=== PATIENT | male | born 1960 | race African-American/Black ===

== ENCOUNTER 2018-12-24 12:14 | Inpatient (IN) | payer MEDICAID ==
[~2018-12-24] VITALS: Ht 167.6 cm; Wt 54.2 kg
[~2018-12-24 12:14] MED LIST: AMOX125S12 PO; FLUD0.1T PO; FOLI-43 PO; GABA-529 PO; HYDR-4001 PO; METF-414 PO; METH500T PO; MULT1TAB63 PO; PANT40TA4 PO; PIPE3.3736 IV; THIA100T75 PO
[2018-12-24 13:01] LABS: BASOPHILS % 0.3 % (0.0-2.0); EOSINOPHILS % 0.1 % (0.0-5.0); HEMATOCRIT. 34.4 % (42.0-52.0); HEMOGLOBIN. 11.5 g/dL (14.0-18.0); LYMPHOCYTES % 10.3 % (20.0-50.0); MEAN CORPUSCULAR HEMOGLOBIN 31.9 pg (28.0-32.0); MEAN CORPUSCULAR VOLUME 95.3 fL (80.0-94.0); MEAN PLATELET VOLUME 8.2 fl (7.4-10.4); MONOCYTES % 7.9 % (2.0-8.0); NEUTROPHILS % 81.4 % (40.0-76.0); PLATELET 313 x1000/uL (130-400); RED BLOOD CELL COUNT 3.61 mill/uL (4.7-6.1); RED CELL DISTRIBUTION WIDTH 14.9 % (11.6-14.6)
[2018-12-24 13:08] LABS: INR 1.1; PROTHROMBIN TIME 11.1 sec (9.6-11.0)
[2018-12-24 13:16] LABS: CHLORIDE 108 mEq/L (98-107)
[2018-12-24 13:20] LABS: ETHANOL BLOOD < 10 mg/dL
[2018-12-24 13:22] LABS: LDL CHOLESTEROL 56 mg/dL (5-100)
[2018-12-24] MEDS ORDERED: IOHEXOL-350 100 ML BOTTLE ONE (14:15)
[2018-12-24] MEDS ORDERED: DEXT 5%/LACTATED RINGERS 1,000 ML IV ONE (15:15)
[2018-12-24] MEDS ORDERED: DOXYCYCLINE HYCLATE 100 MG/VIAL IV ONE (16:30)
[2018-12-24] MEDS ORDERED: CEFTRIAXONE 1 G PREMIX 50 ML IV ONE (16:30)
[2018-12-24] MEDS ORDERED: DOXYCYCLINE 100MG in DEXTROSE 5% WATER 100ML IV SCH (17:50)
[2018-12-24] MEDS ORDERED: HALOPERIDOL LACTATE 5MG/ML VIAL IM ONE (18:00)
[2018-12-24 18:28] LABS: CLARITY URINE CLOUDY (CLEAR); COLOR URINE YELLOW (YELLOW); KETONES URINE NEGATIVE (NEGATIVE); LEUKOCYTE ESTERASE URINE NEGATIVE (NEGATIVE); NITRITE URINE NEGATIVE (NEGATIVE); OCCULT BLOOD URINE NEGATIVE (NEGATIVE); PROTEIN URINE 1+ (NEGATIVE); SPECIFIC GRAVITY URINE 1.037 (1.005-1.030); UROBILINOGEN URINE 0.2 E.U./dL (0.2-1.0)
[2018-12-24 18:52] LABS: *AMPHETAMINES SCREEN URINE NEGATIVE (NEGATIVE); *BARBITURATES SCREEN URINE NEGATIVE (NEGATIVE); *BENZODIAZEPINES SCREEN URINE NEGATIVE (NEGATIVE); *COCAINE SCREEN URINE NEGATIVE (NEGATIVE); METHADONE URINE SCREEN NEGATIVE (NEGATIVE); OPIATES URINE SCREEN NEGATIVE (NEGATIVE)
[2018-12-24 18:54] LABS: CANNABINOID URINE SCREEN NEGATIVE (NEGATIVE); PHENCYCLIDINE URINE SCREEN NEGATIVE (NEGATIVE)
[2018-12-24] MEDS ORDERED: ONDANSETRON HCL 4MG/2ML INJ IM PRN (19:45)
[2018-12-24] MEDS ORDERED: LORAZEPAM 2MG/ML CPJ IM PRN (19:45)
[2018-12-24 20:00] VITALS: BP 97/65
[2018-12-24] MEDS ORDERED: DEXTROSE 50% WATER 50ML SYRINGE IV PRN (20:00)
[2018-12-24] MEDS: BLOOD SUGAR DIAGNOSTIC STRIP TEST SCH (21:00)
[2018-12-24] MEDS: DEXT 5%/0.45% NACL 1000ML 1,000 ML IV SCH (21:17)
[2018-12-24 22:00] VITALS: BP 95/65
[2018-12-24] MEDS ORDERED: DOXYCYCLINE 100 MG in DEXT 5% WATER 100 ML IV SCH (22:00)
[2018-12-24] MEDS: INSULIN LISPRO 100 UNITS/ML SUBCUT SCH (22:08)
[2018-12-24 22:44] VITALS: BP 112/67
[2018-12-24] MEDS ORDERED: CEFTRIAXONE 1 G PREMIX 50 ML IV SCH (23:00)
[2018-12-25] VITALS (13 sets, daily range): BP systolic 76–128; BP diastolic 47–78
[2018-12-25] MEDS: BLOOD SUGAR DIAGNOSTIC STRIP TEST SCH ×4 (07:17→21:00)
[2018-12-25 07:33] LABS: CHLORIDE 110 mEq/L (98-107)
[2018-12-25 07:45] LABS: HDL CHOLESTEROL 69 mg/dL (40-59)
[2018-12-25 07:46] LABS: LDL CHOLESTEROL 39 mg/dL (5-100)
[2018-12-25] MEDS: INSULIN LISPRO 100 UNITS/ML SUBCUT SCH ×4 (07:51→21:00)
[2018-12-25] MEDS ORDERED: ASPIRIN 81MG TABLET PO SCH (09:00)
[2018-12-25] MEDS: DEXT 5%/0.45% NACL 1000ML 1,000 ML IV SCH ×2 (10:18→23:12)
[2018-12-25 10:28] LABS: HEMOGLOBIN. 9.3 g/dL (14.0-18.0); MEAN CORPUSCULAR HEMOGLOBIN 31.4 pg (28.0-32.0); MEAN CORPUSCULAR VOLUME 95.1 fL (80.0-94.0); MEAN PLATELET VOLUME 8.8 fl (7.4-10.4); PLATELET 255 x1000/uL (130-400); RED BLOOD CELL COUNT 2.95 mill/uL (4.7-6.1); RED CELL DISTRIBUTION WIDTH 15.1 % (11.6-14.6)
[2018-12-25] MEDS: THIAMINE HCL 100MG TABLET PO SCH (12:30)
[2018-12-25] MEDS: FOLIC ACID 1MG TABLET PO SCH (12:30)
[2018-12-25] MEDS: NICOTINE 14MG PATCH TD SCH (13:43)
[2018-12-25] MEDS ORDERED: CHLORDIAZEPOXIDE 25MG CAPSULE PO PRN (14:00)
[2018-12-25] MEDS: ACETAMINOPHEN 325MG TABLET PO PRN (16:59)
[2018-12-25 19:39] LABS: T4 FREE 1.35 ng/dL (0.76-1.46)
[2018-12-25 19:52] LABS: FOLIC ACID (FOLATE) SERUM 14.8 ng/mL (>5.38)
[2018-12-25 20:52] LABS: PLATELET ESTIMATE NORMAL
[2018-12-25] MEDS: LORAZEPAM 2MG/ML CPJ IV PRN (21:46)
[2018-12-26] VITALS: BP 99/53
[2018-12-26] MEDS ORDERED: IPRATROPIUM/ALBUTEROL 0.5-3(2.5)MG/3ML NEB HHN PRN
[2018-12-26] MEDS: IPRATROPIUM/ALBUTEROL 0.5-3(2.5)MG/3ML NEB HHN SCH ×4 (00:11→20:00)
[2018-12-26] MEDS ORDERED: LEVOFLOXACIN 500MG PREMIX 100 ML IV SCH ×2 (01:00→08:00)
[2018-12-26 02:00] VITALS: BP 118/69
[2018-12-26 04:00] VITALS: BP 112/73
[2018-12-26] MEDS: LORAZEPAM 2MG/ML CPJ IV PRN (05:35)
[2018-12-26 06:00] VITALS: BP 95/53
[2018-12-26] MEDS: BLOOD SUGAR DIAGNOSTIC STRIP TEST SCH ×4 (07:30→21:40)
[2018-12-26] MEDS: FOLIC ACID 1MG TABLET PO SCH (08:38)
[2018-12-26] MEDS: THIAMINE HCL 100MG TABLET PO SCH (08:39)
[2018-12-26] MEDS: NICOTINE 14MG PATCH TD SCH (08:39)
[2018-12-26] MEDS: INSULIN LISPRO 100 UNITS/ML SUBCUT SCH ×4 (08:41→21:00)
[2018-12-26] MEDS: DEXT 5%/0.45% NACL 1000ML 1,000 ML IV SCH (11:29)
[2018-12-26] MEDS ORDERED: VANCOMYCIN 1500MG in DEXTROSE 5% WATER 250ML IV NR (13:00)
[2018-12-26 14:56] LABS: BASOPHILS % 1.1 % (0.0-2.0); EOSINOPHILS % 0.9 % (0.0-5.0); HEMATOCRIT. 26.8 % (42.0-52.0); HEMOGLOBIN. 8.9 g/dL (14.0-18.0); LYMPHOCYTES % 7.3 % (20.0-50.0); MEAN CORPUSCULAR HEMOGLOBIN 31.3 pg (28.0-32.0); MEAN CORPUSCULAR VOLUME 93.7 fL (80.0-94.0); MEAN PLATELET VOLUME 9.5 fl (7.4-10.4); MONOCYTES % 3.4 % (2.0-8.0); NEUTROPHILS % 87.3 % (40.0-76.0); PLATELET 240 x1000/uL (130-400); RED BLOOD CELL COUNT 2.86 mill/uL (4.7-6.1); RED CELL DISTRIBUTION WIDTH 15.1 % (11.6-14.6)
[2018-12-26] MEDS: CEFEPIME 2,000 MG in DEXT 5% WATER 100 ML IV SCH (14:59)
[2018-12-26] MEDS: METRONIDAZOLE 500 MG PREMIX 100 ML IV SCH ×2 (14:59→21:40)
[2018-12-26 20:00] VITALS: BP 128/74
[2018-12-26] MEDS ORDERED: VANCOMYCIN 1 G PREMIX 200 ML IV SCH (21:00)
[2018-12-26 22:00] VITALS: BP 134/78
[2018-12-27] VITALS (12 sets, daily range): BP systolic 106–133; BP diastolic 69–86
[2018-12-27] MEDS: CEFEPIME 2,000 MG in DEXT 5% WATER 100 ML IV SCH ×3 (00:11→23:44)
[2018-12-27] MEDS: ACETAMINOPHEN 325MG TABLET PO PRN (00:18)
[2018-12-27] MEDS: IPRATROPIUM/ALBUTEROL 0.5-3(2.5)MG/3ML NEB HHN SCH ×5 (01:14→16:05)
[2018-12-27] MEDS: DEXT 5%/0.45% NACL 1000ML 1,000 ML IV SCH ×2 (02:39→15:14)
[2018-12-27] MEDS: VANCOMYCIN 1 G PREMIX 200 ML IV SCH ×2 (02:39→15:14)
[2018-12-27] MEDS: LORAZEPAM 2MG/ML CPJ IV PRN (04:20)
[2018-12-27] MEDS: METRONIDAZOLE 500 MG PREMIX 100 ML IV SCH ×3 (06:23→21:03)
[2018-12-27] MEDS: BLOOD SUGAR DIAGNOSTIC STRIP TEST SCH ×4 (07:30→20:17)
[2018-12-27] MEDS: NICOTINE 14MG PATCH TD SCH (08:41)
[2018-12-27] MEDS: FOLIC ACID 1MG TABLET PO SCH (08:41)
[2018-12-27] MEDS: THIAMINE HCL 100MG TABLET PO SCH (08:41)
[2018-12-27] MEDS: INSULIN LISPRO 100 UNITS/ML SUBCUT SCH ×4 (08:47→20:20)
[2018-12-27] MEDS ORDERED: IPRATROPIUM BROMIDE (0.02%) 0.5MG/2.5ML NEB HHN SCH (17:15)
[2018-12-27] MEDS: IPRATROPIUM BROMIDE (0.02%) 0.5MG/2.5ML NEB HHN SCH (20:34)
[2018-12-27] MEDS: POLYETHYLENE GLYCOL 3350 (17GM) 1 DOSE PACK PO SCH (21:02)
[2018-12-27] MEDS: LACTULOSE 20G/30ML UDC PO SCH (21:02)
[2018-12-28] VITALS (7 sets, daily range): BP systolic 114–155; BP diastolic 50–91
[2018-12-28] MEDS: IPRATROPIUM BROMIDE (0.02%) 0.5MG/2.5ML NEB HHN SCH ×6 (00:40→21:29)
[2018-12-28] MEDS: VANCOMYCIN 1 G PREMIX 200 ML IV SCH (01:55)
[2018-12-28] MEDS: DEXT 5%/0.45% NACL 1000ML 1,000 ML IV SCH ×2 (03:39→18:21)
[2018-12-28] MEDS: METRONIDAZOLE 500 MG PREMIX 100 ML IV SCH ×3 (05:58→22:35)
[2018-12-28] MEDS: BLOOD SUGAR DIAGNOSTIC STRIP TEST SCH ×4 (07:30→20:34)
[2018-12-28] MEDS: DOCUSATE SODIUM 100MG CAPSULE PO SCH ×2 (09:00→16:26)
[2018-12-28] MEDS: LACTULOSE 20G/30ML UDC PO SCH ×3 (09:00→13:00)
[2018-12-28] MEDS: NICOTINE 14MG PATCH TD SCH (09:47)
[2018-12-28] MEDS: THIAMINE HCL 100MG TABLET PO SCH (09:48)
[2018-12-28] MEDS: FOLIC ACID 1MG TABLET PO SCH (09:48)
[2018-12-28] MEDS: INSULIN LISPRO 100 UNITS/ML SUBCUT SCH ×4 (09:50→20:44)
[2018-12-28] MEDS ORDERED: ACETAMINOPHEN 325MG TABLET PO PRN (12:00)
[2018-12-28] MEDS: ACETAMINOPHEN 325MG TABLET PO PRN ×2 (12:02→20:32)
[2018-12-28] MEDS: CEFEPIME 2,000 MG in DEXT 5% WATER 100 ML IV SCH (13:24)
[2018-12-28 14:53] LABS: BASOPHILS % 0.4 % (0.0-2.0); EOSINOPHILS % 2.1 % (0.0-5.0); HEMATOCRIT. 27.4 % (42.0-52.0); HEMOGLOBIN. 9.2 g/dL (14.0-18.0); LYMPHOCYTES % 8.9 % (20.0-50.0); MEAN CORPUSCULAR HEMOGLOBIN 31.4 pg (28.0-32.0); MEAN CORPUSCULAR VOLUME 92.9 fL (80.0-94.0); MEAN PLATELET VOLUME 8.3 fl (7.4-10.4); NEUTROPHILS % 79.6 % (40.0-76.0); PLATELET 258 x1000/uL (130-400); RED BLOOD CELL COUNT 2.95 mill/uL (4.7-6.1)
[2018-12-28 14:55] LABS: CHLORIDE 115 mEq/L (98-107)
[2018-12-28 15:05] LABS: VANCOMYCIN TROUGH 23.9 ug/mL (5.0-10.0)
[2018-12-28] MEDS: VANCOMYCIN 750 MG PREMIX 150 ML IV SCH (18:21)
[2018-12-28] MEDS: POLYETHYLENE GLYCOL 3350 (17GM) 1 DOSE PACK PO SCH (20:32)
[2018-12-28] MEDS: POTASSIUM CHLORIDE 10MEQ TABLET SR PO SCH (20:34)
[2018-12-28] MEDS: INSULIN GLARGINE UD 100 UNITS/ML SYR SUBCUT SCH (22:00)
[2018-12-29] VITALS: BP 100/62
[2018-12-29] MEDS: CEFEPIME 2,000 MG in DEXT 5% WATER 100 ML IV SCH ×2 (00:44→14:04)
[2018-12-29] MEDS: IPRATROPIUM BROMIDE (0.02%) 0.5MG/2.5ML NEB HHN SCH ×7 (01:50→23:44)
[2018-12-29] MEDS: LORAZEPAM 2MG/ML CPJ IV PRN (02:11)
[2018-12-29] MEDS: METRONIDAZOLE 500 MG PREMIX 100 ML IV SCH ×3 (05:28→22:54)
[2018-12-29] MEDS: VANCOMYCIN 750 MG PREMIX 150 ML IV SCH ×2 (05:29→19:08)
[2018-12-29] MEDS: INSULIN LISPRO 100 UNITS/ML SUBCUT SCH ×4 (06:09→23:44)
[2018-12-29] MEDS: DEXT 5%/0.45% NACL 1000ML 1,000 ML IV SCH ×2 (06:46→22:53)
[2018-12-29] MEDS: BLOOD SUGAR DIAGNOSTIC STRIP TEST SCH ×4 (06:47→21:00)
[2018-12-29 06:56] LABS: BASOPHILS % 0.6 % (0.0-2.0); EOSINOPHILS % 2.6 % (0.0-5.0); HEMATOCRIT. 27.8 % (42.0-52.0); HEMOGLOBIN. 9.4 g/dL (14.0-18.0); LYMPHOCYTES % 14.4 % (20.0-50.0); MEAN CORPUSCULAR HEMOGLOBIN 31.3 pg (28.0-32.0); MEAN CORPUSCULAR VOLUME 92.7 fL (80.0-94.0); MEAN PLATELET VOLUME 8.5 fl (7.4-10.4); MONOCYTES % 7.9 % (2.0-8.0); NEUTROPHILS % 74.5 % (40.0-76.0); PLATELET 228 x1000/uL (130-400); RED CELL DISTRIBUTION WIDTH 15.1 % (11.6-14.6)
[2018-12-29 07:13] LABS: CHLORIDE 116 mEq/L (98-107)
[2018-12-29 08:00] VITALS: BP 105/59
[2018-12-29] MEDS: DOCUSATE SODIUM 100MG CAPSULE PO SCH ×2 (10:44→19:08)
[2018-12-29] MEDS: POTASSIUM CHLORIDE 10MEQ TABLET SR PO SCH (10:44)
[2018-12-29] MEDS: THIAMINE HCL 100MG TABLET PO SCH (10:44)
[2018-12-29] MEDS: NICOTINE 14MG PATCH TD SCH (10:45)
[2018-12-29] MEDS: FOLIC ACID 1MG TABLET PO SCH (11:05)
[2018-12-29 11:55] LABS: BG BASE EXCESS -6.7 mmol/L (-2.0-2.0); BG CARBOXYHEMOGLOBIN 0.1 % (0.5-1.5); BG DEOXYHEMOGLOBIN 13.2 % (0.0-5.0); BG HCO3 ACT 17.1 mmol/L (22.0-26.0); BG METHEMOGLOBIN 0.5 % (0.0-1.5); BG OXYGEN SATURATION 86.7 % (92.0-98.5); BG OXYHEMOGLOBIN 86.2 % (94.0-97.0); BG PCO2 28.4 mmHg (35.0-45.0); BG PH 7.398 (7.350-7.450); BG SAMPLE SITE RIGHT RADIAL; BG TOTAL HEMOGLOBIN 9.6 g/dL (12.0-18.0); BG VENT MODE NASAL CANNULA
[2018-12-29 12:00] VITALS: BP 131/73
[2018-12-29] MEDS: ACETAMINOPHEN 325MG TABLET PO PRN (13:59)
[2018-12-29 16:00] VITALS: BP 99/56
[2018-12-29 20:00] VITALS: BP 122/76
[2018-12-29] MEDS ORDERED: METHYLPREDNISOLONE SOD SUCC 125 MG/2 ML VIAL IV NR (21:45)
[2018-12-29] MEDS: POLYETHYLENE GLYCOL 3350 (17GM) 1 DOSE PACK PO SCH (22:53)
[2018-12-29] MEDS: INSULIN GLARGINE UD 100 UNITS/ML SYR SUBCUT SCH (23:45)
[2018-12-30] VITALS: BP 98/50
[2018-12-30] MEDS ORDERED: IPRATROPIUM/ALBUTEROL 0.5-3(2.5)MG/3ML NEB HHN PRN (00:45)
[2018-12-30] MEDS: CEFEPIME 2,000 MG in DEXT 5% WATER 100 ML IV SCH ×2 (01:05→12:20)
[2018-12-30 04:00] VITALS: BP 107/66
[2018-12-30] MEDS: IPRATROPIUM BROMIDE (0.02%) 0.5MG/2.5ML NEB HHN SCH ×5 (05:04→20:22)
[2018-12-30 05:07] LABS: CHLORIDE 114 mEq/L (98-107)
[2018-12-30 05:23] LABS: VANCOMYCIN TROUGH 27.6 ug/mL (5.0-10.0)
[2018-12-30 06:12] LABS: HEMATOCRIT. 28.1 % (42.0-52.0); HEMOGLOBIN. 9.5 g/dL (14.0-18.0); MEAN CORPUSCULAR HEMOGLOBIN 31.3 pg (28.0-32.0); MEAN CORPUSCULAR VOLUME 92.3 fL (80.0-94.0); MEAN PLATELET VOLUME 8.6 fl (7.4-10.4); PLATELET 151 x1000/uL (130-400); RED BLOOD CELL COUNT 3.05 mill/uL (4.7-6.1); RED CELL DISTRIBUTION WIDTH 15.3 % (11.6-14.6)
[2018-12-30] MEDS: METRONIDAZOLE 500 MG PREMIX 100 ML IV SCH ×3 (06:19→21:00)
[2018-12-30] MEDS: METHYLPREDNISOLONE SOD SUCC 40 MG/ML VIAL IV SCH ×3 (06:19→21:00)
[2018-12-30] MEDS: VANCOMYCIN 750 MG PREMIX 150 ML IV SCH (06:19)
[2018-12-30] MEDS: INSULIN LISPRO 100 UNITS/ML SUBCUT SCH ×5 (07:00→21:02)
[2018-12-30 07:40] VITALS: BP 119/73
[2018-12-30] MEDS: BLOOD SUGAR DIAGNOSTIC STRIP TEST SCH ×4 (07:40→21:02)
[2018-12-30] MEDS: DOCUSATE SODIUM 100MG CAPSULE PO SCH ×2 (08:59→17:24)
[2018-12-30] MEDS: THIAMINE HCL 100MG TABLET PO SCH (08:59)
[2018-12-30] MEDS: FOLIC ACID 1MG TABLET PO SCH (08:59)
[2018-12-30] MEDS: POTASSIUM CHLORIDE 10MEQ TABLET SR PO SCH (08:59)
[2018-12-30] MEDS: METOPROLOL TARTRATE 25MG TABLET PO SCH ×2 (09:00→21:01)
[2018-12-30] MEDS: NICOTINE 14MG PATCH TD SCH (09:05)
[2018-12-30] MEDS: DEXT 5%/0.45% NACL 1000ML 1,000 ML IV SCH (09:23)
[2018-12-30 12:25] LABS: PLATELET ESTIMATE NORMAL
[2018-12-30] MEDS ORDERED: INSULIN LISPRO 100 UNITS/ML SUBCUT NR (13:00)
[2018-12-30] MEDS ORDERED: DEXTROSE 50% WATER 50ML SYRINGE IV PRN ×2 (13:00)
[2018-12-30] MEDS: ACETAMINOPHEN 325MG TABLET PO PRN ×2 (13:55→21:13)
[2018-12-30 14:05] LABS: BG BASE EXCESS -6.5 mmol/L (-2.0-2.0); BG CARBOXYHEMOGLOBIN 0.3 % (0.5-1.5); BG DEOXYHEMOGLOBIN 2.2 % (0.0-5.0); BG FRACTION INSPIRED OXYGEN 100; BG HCO3 ACT 16.6 mmol/L (22.0-26.0); BG METHEMOGLOBIN 0.2 % (0.0-1.5); BG OXYGEN SATURATION 97.8 % (92.0-98.5); BG OXYHEMOGLOBIN 97.3 % (94.0-97.0); BG PCO2 25.6 mmHg (35.0-45.0); BG PH 7.429 (7.350-7.450); BG PO2 113.9 mmHg (75.0-100.0); BG SAMPLE SITE RIGHT RADIAL; BG VENT MODE MASK - NRB
[2018-12-30 16:00] VITALS: BP 112/74
[2018-12-30] MEDS ORDERED: BLOOD SUGAR DIAGNOSTIC STRIP TEST SCH (17:40)
[2018-12-30 20:00] VITALS: BP 116/72
[2018-12-30] MEDS: POLYETHYLENE GLYCOL 3350 (17GM) 1 DOSE PACK PO SCH (21:01)
[2018-12-30] MEDS: INSULIN GLARGINE UD 100 UNITS/ML SYR SUBCUT SCH (21:36)
[2018-12-31] VITALS: BP 122/71
[2018-12-31] MEDS: VANCOMYCIN 1 G PREMIX 200 ML IV SCH ×2 (00:07→17:10)
[2018-12-31] MEDS: IPRATROPIUM BROMIDE (0.02%) 0.5MG/2.5ML NEB HHN SCH ×6 (00:21→21:19)
[2018-12-31] MEDS: CEFEPIME 2,000 MG in DEXT 5% WATER 100 ML IV SCH ×2 (01:30→12:26)
[2018-12-31 04:00] VITALS: BP 122/74
[2018-12-31] MEDS: METRONIDAZOLE 500 MG PREMIX 100 ML IV SCH ×3 (05:38→21:00)
[2018-12-31] MEDS: METHYLPREDNISOLONE SOD SUCC 40 MG/ML VIAL IV SCH ×3 (05:38→21:00)
[2018-12-31] MEDS: BLOOD SUGAR DIAGNOSTIC STRIP TEST SCH ×4 (05:39→21:02)
[2018-12-31 06:11] LABS: HEMATOCRIT. 28.8 % (42.0-52.0); HEMOGLOBIN. 9.5 g/dL (14.0-18.0); MEAN CORPUSCULAR HEMOGLOBIN 30.6 pg (28.0-32.0); MEAN CORPUSCULAR VOLUME 92.5 fL (80.0-94.0); MEAN PLATELET VOLUME 9.3 fl (7.4-10.4); PLATELET 146 x1000/uL (130-400); RED BLOOD CELL COUNT 3.11 mill/uL (4.7-6.1); RED CELL DISTRIBUTION WIDTH 15.3 % (11.6-14.6)
[2018-12-31] MEDS: INSULIN GLARGINE UD 100 UNITS/ML SYR SUBCUT SCH ×2 (06:17→22:00)
[2018-12-31] MEDS: DEXT 5%/0.45% NACL 1000ML 1,000 ML IV SCH ×2 (06:21→23:02)
[2018-12-31] MEDS: INSULIN LISPRO 100 UNITS/ML SUBCUT SCH ×4 (06:23→21:02)
[2018-12-31 06:28] LABS: CHLORIDE 117 mEq/L (98-107)
[2018-12-31 08:00] VITALS: BP 139/75
[2018-12-31] MEDS: DOCUSATE SODIUM 100MG CAPSULE PO SCH ×2 (08:55→16:26)
[2018-12-31] MEDS: NICOTINE 14MG PATCH TD SCH (08:55)
[2018-12-31] MEDS: FOLIC ACID 1MG TABLET PO SCH (08:55)
[2018-12-31] MEDS: THIAMINE HCL 100MG TABLET PO SCH (08:55)
[2018-12-31] MEDS: POTASSIUM CHLORIDE 10MEQ TABLET SR PO SCH (08:55)
[2018-12-31] MEDS: METOPROLOL TARTRATE 25MG TABLET PO SCH ×2 (08:56→21:01)
[2018-12-31 12:00] VITALS: BP 133/77
[2018-12-31] MEDS: ACETAMINOPHEN 325MG TABLET PO PRN ×2 (13:17→23:02)
[2018-12-31 15:08] LABS: CLARITY URINE CLEAR (CLEAR); COLOR URINE YELLOW (YELLOW); KETONES URINE TRACE (NEGATIVE); LEUKOCYTE ESTERASE URINE TRACE (NEGATIVE); NITRITE URINE NEGATIVE (NEGATIVE); OCCULT BLOOD URINE NEGATIVE (NEGATIVE); PROTEIN URINE 2+ (NEGATIVE); SPECIFIC GRAVITY URINE 1.021 (1.005-1.030); UROBILINOGEN URINE 0.2 E.U./dL (0.2-1.0)
[2018-12-31 16:00] VITALS: BP 149/85
[2018-12-31 16:26] LABS: PLATELET ESTIMATE NORMAL
[2018-12-31 20:00] VITALS: BP 146/85
[2018-12-31] MEDS: POLYETHYLENE GLYCOL 3350 (17GM) 1 DOSE PACK PO SCH (21:01)
[2019-01-01] VITALS: BP 138/81
[2019-01-01] MEDS: CEFEPIME 2,000 MG in DEXT 5% WATER 100 ML IV SCH ×2 (00:54→13:26)
[2019-01-01] MEDS: IPRATROPIUM BROMIDE (0.02%) 0.5MG/2.5ML NEB HHN SCH ×6 (01:15→20:38)
[2019-01-01 04:00] VITALS: BP 117/72
[2019-01-01] MEDS: METRONIDAZOLE 500 MG PREMIX 100 ML IV SCH ×3 (06:44→21:31)
[2019-01-01] MEDS: METHYLPREDNISOLONE SOD SUCC 40 MG/ML VIAL IV SCH ×3 (06:44→21:31)
[2019-01-01] MEDS: INSULIN LISPRO 100 UNITS/ML SUBCUT SCH ×4 (06:45→21:27)
[2019-01-01] MEDS: ACETAMINOPHEN 325MG TABLET PO PRN (06:52)
[2019-01-01] MEDS: BLOOD SUGAR DIAGNOSTIC STRIP TEST SCH ×4 (07:40→21:27)
[2019-01-01 08:00] VITALS: BP 148/80
[2019-01-01] MEDS: THIAMINE HCL 100MG TABLET PO SCH ×2 (09:00→10:29)
[2019-01-01] MEDS: FOLIC ACID 1MG TABLET PO SCH ×2 (09:00→10:29)
[2019-01-01] MEDS: POTASSIUM CHLORIDE 10MEQ TABLET SR PO SCH ×2 (09:00→10:29)
[2019-01-01] MEDS: DOCUSATE SODIUM 100MG CAPSULE PO SCH ×3 (09:00→17:00)
[2019-01-01] MEDS: METOPROLOL TARTRATE 25MG TABLET PO SCH ×3 (09:00→21:00)
[2019-01-01] MEDS: INSULIN GLARGINE UD 100 UNITS/ML SYR SUBCUT SCH ×2 (10:00→21:27)
[2019-01-01] MEDS: NICOTINE 14MG PATCH TD SCH (10:29)
[2019-01-01 12:00] VITALS: BP 133/86
[2019-01-01] MEDS: CLOPIDOGREL 75MG TABLET PO SCH (12:15)
[2019-01-01] MEDS ORDERED: MICAFUNGIN 100 MG in SODIUM CHLORIDE 0.9% 100 ML IV SCH (13:00)
[2019-01-01] MEDS: VANCOMYCIN 1 G PREMIX 200 ML IV SCH (15:37)
[2019-01-01 20:00] VITALS: BP 187/60
[2019-01-01] MEDS: POLYETHYLENE GLYCOL 3350 (17GM) 1 DOSE PACK PO SCH (21:00)
[2019-01-01] MEDS: DEXT 5%/0.45% NACL 1000ML 1,000 ML IV SCH (21:29)
[2019-01-01] MEDS ORDERED: HYDRALAZINE 20MG/ML VIAL IV PRN (22:00)
[2019-01-02] VITALS: BP 151/77
[2019-01-02] MEDS: MORPHINE SULFATE 2 MG/ML CPJ (NOT FOR IM USE) IV PRN ×2 (00:09→23:02)
[2019-01-02] MEDS: CEFEPIME 2,000 MG in DEXT 5% WATER 100 ML IV SCH ×2 (00:52→13:56)
[2019-01-02] MEDS: IPRATROPIUM BROMIDE (0.02%) 0.5MG/2.5ML NEB HHN SCH ×7 (01:12→23:57)
[2019-01-02 04:00] VITALS: BP 143/77
[2019-01-02] MEDS: METHYLPREDNISOLONE SOD SUCC 40 MG/ML VIAL IV SCH ×3 (05:02→21:39)
[2019-01-02] MEDS: VANCOMYCIN 1 G PREMIX 200 ML IV SCH (05:04)
[2019-01-02] MEDS: METRONIDAZOLE 500 MG PREMIX 100 ML IV SCH ×3 (05:05→21:39)
[2019-01-02 06:13] LABS: INR 1.7; PROTHROMBIN TIME 17.1 sec (9.6-11.0)
[2019-01-02 06:25] LABS: CHLORIDE 116 mEq/L (98-107)
[2019-01-02 06:33] LABS: VANCOMYCIN TROUGH 25.7 ug/mL (5.0-10.0)
[2019-01-02 06:38] LABS: HEMATOCRIT. 27.4 % (42.0-52.0); HEMOGLOBIN. 9.2 g/dL (14.0-18.0); MEAN CORPUSCULAR HEMOGLOBIN 30.8 pg (28.0-32.0); MEAN CORPUSCULAR VOLUME 91.2 fL (80.0-94.0); MEAN PLATELET VOLUME 9.5 fl (7.4-10.4); PLATELET 124 x1000/uL (130-400); RED BLOOD CELL COUNT 3.01 mill/uL (4.7-6.1); RED CELL DISTRIBUTION WIDTH 15.5 % (11.6-14.6)
[2019-01-02] MEDS: BLOOD SUGAR DIAGNOSTIC STRIP TEST SCH ×4 (06:45→21:12)
[2019-01-02 08:00] VITALS: BP_SYST 78
[2019-01-02] MEDS: INSULIN LISPRO 100 UNITS/ML SUBCUT SCH ×4 (08:10→21:00)
[2019-01-02] MEDS: DEXT 5%/0.45% NACL 1000ML 1,000 ML IV SCH ×2 (08:30→23:33)
[2019-01-02] MEDS: THIAMINE HCL 100MG TABLET PO SCH (09:00)
[2019-01-02] MEDS: DOCUSATE SODIUM 100MG CAPSULE PO SCH ×2 (09:00→17:00)
[2019-01-02] MEDS: METOPROLOL TARTRATE 25MG TABLET PO SCH ×2 (09:00→21:39)
[2019-01-02] MEDS: FOLIC ACID 1MG TABLET PO SCH (09:00)
[2019-01-02] MEDS: CLOPIDOGREL 75MG TABLET PO SCH (09:00)
[2019-01-02] MEDS: POTASSIUM CHLORIDE 10MEQ TABLET SR PO SCH (09:00)
[2019-01-02] MEDS: INSULIN GLARGINE UD 100 UNITS/ML SYR SUBCUT SCH ×2 (09:21→21:12)
[2019-01-02] MEDS: NICOTINE 14MG PATCH TD SCH (09:22)
[2019-01-02] MEDS ORDERED: BACTERIOSTATIC SODIUM CHLORIDE 0.9% 30ML VIAL IJ ONE (09:48)
[2019-01-02 12:00] VITALS: BP 140/76
[2019-01-02 15:31] LABS: PLATELET ESTIMATE DECREASED
[2019-01-02] MEDS ORDERED: MIDAZOLAM HCL 5 MG/5 ML VIAL ONE (16:20)
[2019-01-02] MEDS ORDERED: FENTANYL CITRATE/PF 50MCG/ML 2ML VIAL ONE (16:20)
[2019-01-02] MEDS ORDERED: MIDAZOLAM HCL 5 MG/5 ML VIAL IV PRN (16:25)
[2019-01-02] MEDS ORDERED: FENTANYL CITRATE/PF 50MCG/ML 2ML VIAL IV PRN (16:27)
[2019-01-02 20:00] VITALS: BP 132/90
[2019-01-02] MEDS: POLYETHYLENE GLYCOL 3350 (17GM) 1 DOSE PACK PO SCH (21:39)
[2019-01-03] VITALS: BP 142/83
[2019-01-03 04:00] VITALS: BP 141/78
[2019-01-03] MEDS: IPRATROPIUM BROMIDE (0.02%) 0.5MG/2.5ML NEB HHN SCH ×5 (04:03→21:14)
[2019-01-03] MEDS: BLOOD SUGAR DIAGNOSTIC STRIP TEST SCH ×4 (05:18→21:11)
[2019-01-03 08:00] VITALS: BP 141/74
[2019-01-03] MEDS: DOCUSATE SODIUM 100MG CAPSULE PO SCH ×3 (09:51→17:54)
[2019-01-03] MEDS: FOLIC ACID 1MG TABLET PO SCH (09:51)
[2019-01-03] MEDS: METOPROLOL TARTRATE 25MG TABLET PO SCH ×2 (09:51→21:19)
[2019-01-03] MEDS: THIAMINE HCL 100MG TABLET PO SCH (09:51)
[2019-01-03] MEDS: POTASSIUM CHLORIDE 10MEQ TABLET SR PO SCH (09:51)
[2019-01-03] MEDS: CLOPIDOGREL 75MG TABLET PO SCH (09:51)
[2019-01-03] MEDS: NICOTINE 14MG PATCH TD SCH (09:52)
[2019-01-03] MEDS: INSULIN GLARGINE UD 100 UNITS/ML SYR SUBCUT SCH ×2 (09:53→21:20)
[2019-01-03] MEDS: INSULIN LISPRO 100 UNITS/ML SUBCUT SCH ×4 (09:53→21:20)
[2019-01-03] MEDS: METHYLPREDNISOLONE SOD SUCC 40 MG/ML VIAL IV SCH ×2 (09:54→21:19)
[2019-01-03] MEDS: ACETAMINOPHEN 325MG TABLET PO PRN (10:08)
[2019-01-03 12:00] VITALS: BP 140/84
[2019-01-03] MEDS: MORPHINE SULFATE 2 MG/ML CPJ (NOT FOR IM USE) IV PRN ×2 (14:49→21:35)
[2019-01-03 16:00] VITALS: BP 121/71
[2019-01-03] MEDS: DEXT 5%/0.45% NACL 1000ML 1,000 ML IV SCH (17:54)
[2019-01-03] MEDS: ENOXAPARIN 60MG/0.6ML SYR SUBCUT SCH (19:40)
[2019-01-03 20:00] VITALS: BP 120/69
[2019-01-03] MEDS: POLYETHYLENE GLYCOL 3350 (17GM) 1 DOSE PACK PO SCH (21:19)
[2019-01-04] VITALS: BP 148/86
[2019-01-04] MEDS: IPRATROPIUM BROMIDE (0.02%) 0.5MG/2.5ML NEB HHN SCH ×4 (00:51→12:53)
[2019-01-04 04:00] VITALS: BP 120/70
[2019-01-04] MEDS: ACETAMINOPHEN 325MG TABLET PO PRN (04:55)
[2019-01-04 07:09] LABS: CHLORIDE 109 mEq/L (98-107)
[2019-01-04 07:15] LABS: HEMATOCRIT. 29.1 % (42.0-52.0); HEMOGLOBIN. 9.7 g/dL (14.0-18.0); MEAN CORPUSCULAR HEMOGLOBIN 30.7 pg (28.0-32.0); MEAN CORPUSCULAR VOLUME 92.3 fL (80.0-94.0); MEAN PLATELET VOLUME 10.3 fl (7.4-10.4); PLATELET 189 x1000/uL (130-400); RED BLOOD CELL COUNT 3.15 mill/uL (4.7-6.1); RED CELL DISTRIBUTION WIDTH 15.5 % (11.6-14.6)
[2019-01-04] MEDS: BLOOD SUGAR DIAGNOSTIC STRIP TEST SCH ×2 (07:40→12:40)
[2019-01-04 08:00] VITALS: BP_SYST 128; BP_SYST 145; BP_DIAS 49; BP_DIAS 73
[2019-01-04] MEDS: INSULIN LISPRO 100 UNITS/ML SUBCUT SCH ×2 (10:03→13:53)
[2019-01-04] MEDS: DOCUSATE SODIUM 100MG CAPSULE PO SCH ×2 (10:04→10:25)
[2019-01-04] MEDS: THIAMINE HCL 100MG TABLET PO SCH (10:04)
[2019-01-04] MEDS: METHYLPREDNISOLONE SOD SUCC 40 MG/ML VIAL IV SCH (10:04)
[2019-01-04] MEDS: POTASSIUM CHLORIDE 10MEQ TABLET SR PO SCH (10:04)
[2019-01-04] MEDS: CLOPIDOGREL 75MG TABLET PO SCH (10:05)
[2019-01-04] MEDS: FOLIC ACID 1MG TABLET PO SCH (10:05)
[2019-01-04] MEDS: ENOXAPARIN 60MG/0.6ML SYR SUBCUT SCH (10:05)
[2019-01-04] MEDS: NICOTINE 14MG PATCH TD SCH (10:06)
[2019-01-04] MEDS: METOPROLOL TARTRATE 25MG TABLET PO SCH (10:31)
[2019-01-04] MEDS: INSULIN GLARGINE UD 100 UNITS/ML SYR SUBCUT SCH (11:50)
[2019-01-04 12:00] VITALS: BP 138/56
[2019-01-04 13:25] LABS: PLATELET ESTIMATE NORMAL
[2019-01-04 15:07] VITALS: BP 130/69
== END 2019-01-04 15:55 | DRG 720 ==
LOC: ER 12:14 → EDBEDREQSVC 14:54 → EDBEDREQ 15:14 → ENRESERV 15:40 → 5EST 17:09 → 7WST 12-28 23:45
PROVIDERS: ADMIT Internal Medicine; ATTEND Internal Medicine
PROC: 0DH63UZ Insertion of Feeding Device into Stomach, Percutaneous Approach (ICD-10-PCS; principal; 2019-01-02)
DX: A41.9 Sepsis, unspecified organism (principal); J96.01 Acute respiratory failure with hypoxia; G82.50 Quadriplegia, unspecified; E46 Unspecified protein-calorie malnutrition; G92 Toxic encephalopathy; I82.622 Acute embolism and thrombosis of deep veins of left upper extremity; R13.12 Dysphagia, oropharyngeal phase; J18.9 Pneumonia, unspecified organism; E11.649 Type 2 diabetes mellitus with hypoglycemia without coma; I10 Essential (primary) hypertension; D64.9 Anemia, unspecified; E78.5 Hyperlipidemia, unspecified; F10.20 Alcohol dependence, uncomplicated; R47.01 Aphasia; E78.00 Pure hypercholesterolemia, unspecified; K29.70 Gastritis, unspecified, without bleeding; I82.A12 Acute embolism and thrombosis of left axillary vein; K64.9 Unspecified hemorrhoids; R26.9 Unspecified abnormalities of gait and mobility; R74.0 Nonspecific elevation of levels of transaminase and lactic acid dehydrogenase [LDH]; Z86.73 Personal history of transient ischemic attack (TIA), and cerebral infarction without residual deficits; Z95.0 Presence of cardiac pacemaker; Z72.0 Tobacco use; Z78.1 Physical restraint status; Z91.19 Patient's noncompliance with other medical treatment and regimen; Z68.1 Body mass index [BMI] 19.9 or less, adult; Z82.49 Family history of ischemic heart disease and other diseases of the circulatory system; Z83.3 Family history of diabetes mellitus; Z93.1 Gastrostomy status; Z88.8 Allergy status to other drugs, medicaments and biological substances; Z88.6 Allergy status to analgesic agent; Z79.899 Other long term (current) drug therapy
CPT/HCPCS: 36415; 36600; 70496; 70544; 70553; 71045; 73060; 80048; 80061; 80202; 80305; 80320; 82140; 82270; 82375; 82607; 82746; 82805; 82962; 83036; 83721; 84145; 84439; 84443; 84481; 84484; 84550; 87106; 92523; 92610; 93005; 93306; 93880; 93971; 94640; 96372; 97110; 97162; 97166; 97530; 97535; 99291; A6261; C1725; J0360; J0692; J0696; J1630; J1650; J1815; J1956; J2060; J2250; J2270; J2920; J2930; J3010; J3370; J3490; J7040; J7060; J7121; J7620; Q9967; G0480